=== PATIENT | female | born 1930 | race Caucasian/White ===

== ENCOUNTER → 2017-04-25 | Outpatient (CLI) | payer OTHER, MEDICARE ==
[~2017-04-25] MED LIST: ASPIR 8181 M1 PO; DILTIAZEM 24HR180 M3 PO; LEVAQUIN750 MG PO; NORVASC5 MG PO; OMEPRAZOLE20 M2 PO; PRAVASTATIN SOD40 MG PO; PRESERVISIO1 CAPSULE PO; SPIRIVA RESPIMAT4 G1 IH; SYMBICORT60 INHALA1 IH
== END | disposition home or self-care (01) ==
LOC: NUC 08:12
DX: R07.9 Chest pain, unspecified (principal)
CPT/HCPCS: 78452; 93017; 93306; A9500; J2785

== ENCOUNTER → 2017-04-26 | Outpatient (CLI) | payer OTHER, MEDICARE ==
[~2017-04-26] VITALS: Ht 144.8 cm; Wt 56.2 kg
[2017-04-26 09:32] LABS: PROTHROMBIN TIME 11.4 SEC (10.2-12.9)
[2017-04-26 09:34] LABS: PTT 28.3 SEC (25-37)
== END | disposition home or self-care (01) ==
LOC: OPR 08:42 → EDSTATUS 09:00 → OPR 09:00
PROVIDERS: Internal Medicine Pulmonary Disease
PROC: 0BBF3ZX Excision of Right Lower Lung Lobe, Percutaneous Approach, Diagnostic (ICD-10-PCS; principal; 2017-04-26)
DX: C34.31 Malignant neoplasm of lower lobe, right bronchus or lung (principal); Z87.891 Personal history of nicotine dependence; J44.9 Chronic obstructive pulmonary disease, unspecified; K21.9 Gastro-esophageal reflux disease without esophagitis; E78.5 Hyperlipidemia, unspecified; I48.91 Unspecified atrial fibrillation; I25.9 Chronic ischemic heart disease, unspecified; Z88.5 Allergy status to narcotic agent; Z80.7 Family history of other malignant neoplasms of lymphoid, hematopoietic and related tissues; Z83.3 Family history of diabetes mellitus; Z82.49 Family history of ischemic heart disease and other diseases of the circulatory system
CPT/HCPCS: 71010; 77012; 85610; 85730; J3010

== ENCOUNTER → 2017-05-14 | Outpatient (CLI) | payer OTHER, MEDICARE ==
[2017-05-14 11:12] LABS: BASE EXCESS -0.3 mEq/L (-3 to +3); BICARBONATE 24.1 mEq/L (22-26); CARBOXY HGB 1.8 % (0-5); COMMENTS - BLOOD GASES AC+; DEVICE ROOM AIR; FI02 21 %; PCO2 38 mm Hg (35-45); PO2 72 mm Hg (80-100); SITE LR; TOTAL RESP RATE 14 resp/min; pH 7.41 (7.35-7.45)
== END | disposition home or self-care (01) ==
LOC: RES 10:52
PROVIDERS: Thoracic Surgery (Cardiothoracic Vascular Surgery)
DX: C34.90 Malignant neoplasm of unspecified part of unspecified bronchus or lung (principal); R94.2 Abnormal results of pulmonary function studies
CPT/HCPCS: 36600; 82803; 94060; 94726; 94729

== ENCOUNTER 2017-05-17 08:53 | Day surgery (SDC) | payer OTHER, MEDICARE ==
[~2017-05-17] VITALS: Ht 149.9 cm; Wt 56.7 kg
[2017-05-17 09:33] LABS: PROTHROMBIN TIME 10.8 SEC (10.2-12.9)
[2017-05-17 09:38] LABS: CHLORIDE 107 mEq/L (99-109); SODIUM 143 mEq/L (136-147)
[2017-05-17 09:40] LABS: GLUCOSE 96 mg/dL (70-99)
[2017-05-17 09:41] LABS: ANION GAP 9 MEQ/L (2-14)
[2017-05-17 09:42] LABS: TOTAL BILIRUBIN 0.5 mg/dL (0.0-1.0)
[2017-05-17 09:43] LABS: ALKALINE PHOSPHATASE 70 IU/L (3-129)
[2017-05-17 09:44] LABS: GFR ESTIMATE (CALCULATED) > 59 mL/min/
[2017-05-17 09:45] LABS: UREA NITROGEN (BUN) 17 mg/dL (9-23)
[2017-05-17 09:51] VITALS: BP 148/90
[2017-05-17 14:45] VITALS: BP 122/66
[2017-05-17 15:30] VITALS: BP 116/64
== END 2017-05-17 15:44 | disposition home or self-care (01) ==
LOC: SDC 08:53
PROVIDERS: Thoracic Surgery (Cardiothoracic Vascular Surgery)
PROC: 07B74ZX Excision of Thorax Lymphatic, Percutaneous Endoscopic Approach, Diagnostic (ICD-10-PCS; principal; 2017-05-17)
DX: C34.31 Malignant neoplasm of lower lobe, right bronchus or lung (principal); C77.1 Secondary and unspecified malignant neoplasm of intrathoracic lymph nodes; I10 Essential (primary) hypertension; J44.9 Chronic obstructive pulmonary disease, unspecified; E78.5 Hyperlipidemia, unspecified; K21.9 Gastro-esophageal reflux disease without esophagitis; Z79.82 Long term (current) use of aspirin
CPT/HCPCS: 80053; 85610; 86850; 86870; 86900; 86901; 86905; 86920; 88305; 93005; J0131; J0330; J0690; J2405; J2710; J3010

== ENCOUNTER 2017-10-19 10:18 | Inpatient (IN) | payer OTHER, MEDICARE ==
[~2017-10-19] VITALS: Ht 149.9 cm; Wt 57.1 kg
[2017-10-19 11:25] LABS: HEMATOCRIT 40.5 % (36.0-46.0); HEMOGLOBIN 13.5 G/DL (11.9-15.5); MCH 31.4 PG (29.0-34.0); MCHC 33.3 G/DL (30.0-36.0); MCV 94.2 FL (83-99); PLATELET COUNT 165 K/uL (156-360); RBC DIS.WIDTH-CV 14.2 % (11.8-14.6); RBC DIS.WIDTH-SD 49.4 % (39-53); WHITE BLOOD COUNT 4.8 K/uL (4.1-10.2)
[2017-10-19 11:35] LABS: CHLORIDE 105 mEq/L (99-109); POTASSIUM 4.2 mEq/L (3.7-5.4); SODIUM 140 mEq/L (136-147)
[2017-10-19 11:36] LABS: GLUCOSE 80 mg/dL (70-99)
[2017-10-19 11:40] LABS: CREATININE 0.7 mg/dL (0.6-1.3); GFR ESTIMATE (CALCULATED) > 59 mL/min/
[2017-10-19 11:41] LABS: UREA NITROGEN (BUN) 12 mg/dL (9-23)
[2017-10-19 11:45] LABS: TROP-I INTERPRETATION NEGATIVE; TROPONIN-I < 0.01 ng/mL (0.0-0.30)
[2017-10-19] MEDS ORDERED: ANORO ELLIPTA1 EACH IH (12:36)
[2017-10-19] MEDS ORDERED: VENTOLIN HFA18 GM IH (12:37)
[2017-10-19 13:52] LABS: INTER. NORMALIZED RATIO 1.1
[2017-10-19 13:55] LABS: PTT 26.4 SEC (25-37)
[2017-10-19] MEDS ORDERED: CARTIA XT180 MG PO (16:40)
[2017-10-19 17:15] VITALS: BP 141/78
[2017-10-19 19:22] VITALS: BP 144/66
[2017-10-20] VITALS (7 sets, daily range): BP systolic 102–117; BP diastolic 57–72
[2017-10-20 05:49] LABS: HEMATOCRIT 34.1 % (36.0-46.0); MCHC 33.1 G/DL (30.0-36.0); MCV 93.4 FL (83-99); PLATELET COUNT 165 K/uL (156-360); RBC DIS.WIDTH-CV 14.2 % (11.8-14.6); RBC DIS.WIDTH-SD 48.9 % (39-53); RED BLOOD COUNT 3.65 M/uL (3.80-5.20)
[2017-10-20 05:50] LABS: HEMOGLOBIN 11.3 G/DL (11.9-15.5)
[2017-10-21 06:47] LABS: HEMATOCRIT 35.5 % (36.0-46.0); HEMOGLOBIN 11.8 G/DL (11.9-15.5); MCH 31.4 PG (29.0-34.0); MCHC 33.2 G/DL (30.0-36.0); MCV 94.4 FL (83-99); PLATELET COUNT 165 K/uL (156-360); RBC DIS.WIDTH-CV 14.3 % (11.8-14.6); RBC DIS.WIDTH-SD 49.7 % (39-53); RED BLOOD COUNT 3.76 M/uL (3.80-5.20); WHITE BLOOD COUNT 3.9 K/uL (4.1-10.2)
[2017-10-21 07:05] LABS: CHLORIDE 105 MEQ/L (99-109); CREATININE 0.6 MG/DL (0.6-1.3); GFR ESTIMATE (CALCULATED) > 59 mL/min/; GLUCOSE 95 mg/dL (70-99); POTASSIUM 4.2 MEQ/L (3.7-5.4); SODIUM 141 MEQ/L (136-147); UREA NITROGEN (BUN) 9 mg/dL (9-23)
[2017-10-21 07:49] VITALS: BP 118/74
[2017-10-21] MEDS ORDERED: ZITHROMAX500 MG PO (13:32)
[2017-10-21] MEDS ORDERED: XARELTO15 MG PO (13:32)
[2017-10-21] MEDS ORDERED: XARELTO20 MG PO (13:32)
[2017-10-21] MEDS ORDERED: CEFTIN500 MG PO (13:33)
== END 2017-10-21 16:15 | disposition home or self-care (01) | DRG 175 ==
LOC: EME 10:18 → EDOF 14:08 → 5EAST 14:08 → ENRESERV 14:09 → 5EAST 17:08
PROVIDERS: Family Medicine; Physician Assistant
DX: I26.99 Other pulmonary embolism without acute cor pulmonale (principal); J18.9 Pneumonia, unspecified organism; J90 Pleural effusion, not elsewhere classified; C34.31 Malignant neoplasm of lower lobe, right bronchus or lung; Z60.2 Problems related to living alone; E78.5 Hyperlipidemia, unspecified; K21.9 Gastro-esophageal reflux disease without esophagitis; Z66 Do not resuscitate; J43.8 Other emphysema; J06.9 Acute upper respiratory infection, unspecified; Z91.14 Patient's other noncompliance with medication regimen; Z92.3 Personal history of irradiation; Z87.891 Personal history of nicotine dependence
CPT/HCPCS: 71046; 71275; 80048; 83605; 83880; 84484; 85027; 85379; 85610; 85730; 87040; 93005; 94640; 94640 76; 99281; 99285; J0456; J0696; J7030

== ENCOUNTER 2018-02-22 12:23 | Emergency (ER) | payer OTHER, MEDICARE ==
[~2018-02-22] VITALS: Ht 152.4 cm; Wt 56.0 kg
[~2018-02-22 12:23] MED LIST changes: +ANORO ELLIPTA1 EACH IH; +CARTIA XT180 MG PO; +CEFTIN500 MG PO; +VENTOLIN HFA18 GM IH; +XARELTO15 MG PO; +XARELTO20 MG PO; +ZITHROMAX500 MG PO
[2018-02-22 12:49] LABS: ALBUMIN 4.2 g/dL (3.2-4.8); CHLORIDE 100 mEq/L (99-109); SODIUM 136 mEq/L (136-147)
[2018-02-22 12:50] LABS: BASOPHIL (%) 0.5 % (0-1); EOSINOPHIL (%) 1.5 % (0-5); EOSINOPHIL COUNT 0.1 K/uL (0-0.3); HEMOGLOBIN 15.2 G/DL (11.9-15.5); IMMATURE GRANULOCYTE (%) 0.3 % (0.0-0.7); LYMPHOCYTE (%) 17.2 % (15-42); LYMPHOCYTE COUNT 1.1 K/uL (1.0-2.8); MCH 32.5 PG (29.0-34.0); MCHC 34.5 G/DL (30.0-36.0); MONOCYTE (%) 7.2 % (3-12); MONOCYTE COUNT 0.4 K/uL (0-0.8); NEUTROPHIL (%) 73.3 % (45-76); NEUTROPHIL COUNT 4.5 K/uL (1.8-6.4); PLATELET COUNT 219 K/uL (156-360); RBC DIS.WIDTH-CV 15.6 % (11.8-14.6); RED BLOOD COUNT 4.68 M/uL (3.80-5.20); WHITE BLOOD COUNT 6.1 K/uL (4.1-10.2)
[2018-02-22 12:51] LABS: GLUCOSE 181 mg/dL (70-99); TOTAL PROTEIN 7.9 g/dL (6.4-8.3)
[2018-02-22 12:52] LABS: INTER. NORMALIZED RATIO 1.3
[2018-02-22 12:53] LABS: TOTAL BILIRUBIN 0.7 mg/dL (0.0-1.0)
[2018-02-22 12:54] LABS: PTT 30.6 SEC (25-37)
[2018-02-22 12:55] LABS: ALKALINE PHOSPHATASE 71 IU/L (3-129); CREATININE 0.8 mg/dL (0.6-1.3); GFR ESTIMATE (CALCULATED) > 59 mL/min/
[2018-02-22 12:56] LABS: UREA NITROGEN (BUN) 13 mg/dL (9-23)
[2018-02-22 12:57] LABS: AST (GOT) 29 IU/L (2-34)
[2018-02-22 12:58] LABS: ALT (GPT) 20 IU/L (3-49)
[2018-02-22 14:02] LABS: APPEARANCE CLEAR ((CLEAR)); BILIRUBIN NEGATIVE; BLOOD MODERATE; COLOR YELLOW ((YELLOW)); GLUCOSE (STRIP) NEGATIVE; KETONES NEGATIVE; LEUKOCYTES NEGATIVE; NITRITE NEGATIVE; PROTEIN (STRIP) NEGATIVE; SPECIFIC GRAVITY 1.024 (1.000-1.030); UROBILINOGEN 0.2 MG/DL (0.2-1.0)
[2018-02-22 14:21] LABS: BACTERIA 2+ /HPF; EPITHELIAL CELLS RARE /HPF; MUCUS NONE SEEN /LPF; UCUL ADDED? YES; WHITE BLOOD CELLS 0-5 /HPF (0-5)
[2018-02-22] MEDS ORDERED: LIDODERM 5% P1 PATCH TD (15:18)
[2018-02-22] MEDS ORDERED: TYLENOL REGULA325 MG PO (15:18)
[2018-02-22 16:12] VITALS: BP 147/94
== END 2018-02-22 16:13 | disposition home or self-care (01) ==
LOC: EME 12:23
PROVIDERS: Emergency Medicine
DX: R82.71 Bacteriuria (principal); B96.1 Klebsiella pneumoniae [K. pneumoniae] as the cause of diseases classified elsewhere; M54.5 Low back pain; R31.9 Hematuria, unspecified; I71.4 Abdominal aortic aneurysm, without rupture; J90 Pleural effusion, not elsewhere classified; R91.8 Other nonspecific abnormal finding of lung field; E78.5 Hyperlipidemia, unspecified; Z79.82 Long term (current) use of aspirin; Z92.3 Personal history of irradiation; Z85.118 Personal history of other malignant neoplasm of bronchus and lung; Z88.5 Allergy status to narcotic agent
CPT/HCPCS: 71275; 74174; 80047; 80053; 81003; 83605; 85025; 85610; 85730; 86850; 86870; 86900; 86901; 86905; 86920; 87077; 87086; 87186; 93005; 99281; 99285; J7120

== ENCOUNTER 2018-04-07 14:32 | Inpatient (IN) | payer OTHER, MEDICARE ==
[~2018-04-07] VITALS: Ht 149.9 cm; Wt 63.7 kg
[~2018-04-07 14:32] MED LIST changes: +LIDODERM 5% P1 PATCH TD; +TYLENOL REGULA325 MG PO
[2018-04-07 15:07] LABS: HEMOGLOBIN 10.2 G/DL (11.9-15.5); MCH 32.8 PG (29.0-34.0); MCV 96.5 FL (83-99); RBC DIS.WIDTH-CV 14.4 % (11.8-14.6); RBC DIS.WIDTH-SD 49.9 % (39-53); RED BLOOD COUNT 3.11 M/uL (3.80-5.20); WHITE BLOOD COUNT 13.7 K/uL (4.1-10.2)
[2018-04-07 15:09] LABS: PLATELET COUNT 275 K/uL (156-360)
[2018-04-07 15:15] LABS: INTER. NORMALIZED RATIO 3.1
[2018-04-07 15:16] LABS: PTT 34.6 SEC (25-37)
[2018-04-07 15:18] LABS: CHLORIDE 100 mEq/L (99-109); POTASSIUM 3.4 mEq/L (3.7-5.4); SODIUM 136 mEq/L (136-147)
[2018-04-07 15:21] LABS: GLUCOSE 136 mg/dL (70-99); TOTAL PROTEIN 5.9 g/dL (6.4-8.3)
[2018-04-07 15:22] LABS: TOTAL BILIRUBIN 0.6 mg/dL (0.0-1.0)
[2018-04-07 15:24] LABS: ALKALINE PHOSPHATASE 146 IU/L (3-129); CREATININE 0.7 mg/dL (0.6-1.3); GFR ESTIMATE (CALCULATED) > 59 mL/min/
[2018-04-07 15:25] LABS: UREA NITROGEN (BUN) 15 mg/dL (9-23)
[2018-04-07 15:26] LABS: AST (GOT) 20 IU/L (2-34)
[2018-04-07 15:27] LABS: ALT (GPT) 23 IU/L (3-49)
[2018-04-07 15:28] LABS: LIPASE 8 U/L (1.0-51.0)
[2018-04-07 17:59] LABS: APPEARANCE SL.HAZY ((CLEAR)); BILIRUBIN NEGATIVE; BLOOD MODERATE; COLOR YELLOW ((YELLOW)); GLUCOSE (STRIP) NEGATIVE; KETONES NEGATIVE; LEUKOCYTES MODERATE; NITRITE NEGATIVE; PROTEIN (STRIP) NEGATIVE; SPECIFIC GRAVITY 1.048 (1.000-1.030)
[2018-04-07] MEDS ORDERED: OMEPRAZOLE20 MG PO (18:39)
[2018-04-07] MEDS ORDERED: TRAMADOL HCL50 MG PO (18:41)
[2018-04-07] MEDS ORDERED: [UNRECOGNIZED DRUG - OTHER] PO (18:47)
[2018-04-07] MEDS ORDERED: ANORO ELLIPTA1 EACH IH (18:51)
[2018-04-07] MEDS ORDERED: XARELTO20 MG PO (18:53)
[2018-04-07] MEDS ORDERED: SENNA-DOCUSATE1 EAC1 PO (18:54)
[2018-04-07 18:57] LABS: BACTERIA RARE /HPF; EPITHELIAL CELLS RARE /HPF; MUCUS TRACE /LPF; RED BLOOD CELLS 40-50 /HPF (0-5); UCUL ADDED? YES; WHITE BLOOD CELLS TNTC /HPF (0-5)
[2018-04-07] MEDS ORDERED: DUONEB 2.5-0.5 M3 ML AEROSOL (18:57)
[2018-04-07] MEDS ORDERED: TYLENOL ARTHRI650 MG PO (18:58)
[2018-04-07] MEDS ORDERED: BISAC-EVAC10 MG PR (19:01)
[2018-04-07] MEDS ORDERED: DULCOLAX10 MG PR (19:02)
[2018-04-07] MEDS ORDERED: MELATONIN1 MG PO (19:03)
[2018-04-07] MEDS ORDERED: MILK OF MAGN PO (19:05)
[2018-04-07] MEDS ORDERED: MIRALAX17 GM PO (19:07)
[2018-04-07] MEDS ORDERED: ZOFRAN4 MG PO (19:08)
[2018-04-07] MEDS ORDERED: OXAYDO5 MG PO (19:09)
[2018-04-07] MEDS ORDERED: PRUNE JUICE PO (19:13)
[2018-04-07 21:59] VITALS: BP 117/70
[2018-04-08] VITALS (7 sets, daily range): BP systolic 121–147; BP diastolic 63–87
[2018-04-08 05:31] LABS: HEMATOCRIT 28.8 % (36.0-46.0); HEMOGLOBIN 9.5 G/DL (11.9-15.5); MCH 32.2 PG (29.0-34.0); MCV 97.6 FL (83-99); PLATELET COUNT 321 K/uL (156-360); RBC DIS.WIDTH-CV 14.4 % (11.8-14.6); RBC DIS.WIDTH-SD 51.1 % (39-53); RED BLOOD COUNT 2.95 M/uL (3.80-5.20); WHITE BLOOD COUNT 15.5 K/uL (4.1-10.2)
[2018-04-08 06:02] LABS: ALBUMIN 2.7 G/DL (3.2-4.8); ALKALINE PHOSPHATASE 112 IU/L (3-129); ALT (GPT) 15 IU/L (3-49); AST (GOT) 19 IU/L (2-34); CHLORIDE 104 MEQ/L (99-109); CREATININE 0.5 MG/DL (0.6-1.3); GFR ESTIMATE (CALCULATED) > 59 mL/min/; GLUCOSE 134 mg/dL (70-99); POTASSIUM 3.6 MEQ/L (3.7-5.4); SODIUM 136 MEQ/L (136-147); TOTAL BILIRUBIN 0.5 MG/DL (0.0-1.0); UREA NITROGEN (BUN) 17 mg/dL (9-23)
[2018-04-08 06:08] LABS: INTER. NORMALIZED RATIO 1.9
[2018-04-08 08:20] LABS: TROP-I INTERPRETATION NEGATIVE; TROPONIN-I 0.01 ng/mL (0.0-0.30)
[2018-04-09 04:06] VITALS: BP 137/77
[2018-04-09 06:09] LABS: HEMATOCRIT 27.5 % (36.0-46.0); HEMOGLOBIN 8.8 G/DL (11.9-15.5); MCH 31.8 PG (29.0-34.0); MCV 99.3 FL (83-99); PLATELET COUNT 362 K/uL (156-360); RBC DIS.WIDTH-CV 14.6 % (11.8-14.6); RBC DIS.WIDTH-SD 53.1 % (39-53); RED BLOOD COUNT 2.77 M/uL (3.80-5.20); WHITE BLOOD COUNT 12.7 K/uL (4.1-10.2)
[2018-04-09 06:20] LABS: INTER. NORMALIZED RATIO 2.1
[2018-04-09 06:23] LABS: PTT 28.7 SEC (25-37)
[2018-04-09 06:39] LABS: BASOPHIL (%) 0.2 % (0-1); EOSINOPHIL (%) 0 % (0-5); IMMATURE GRANULOCYTE (%) 0.4 % (0.0-0.7); LYMPHOCYTE (%) 3.5 % (15-42); LYMPHOCYTE COUNT 0.5 K/uL (1.0-2.8); MONOCYTE (%) 7.1 % (3-12); MONOCYTE COUNT 0.9 K/uL (0-0.8); NEUTROPHIL (%) 88.8 % (45-76); NEUTROPHIL COUNT 11.3 K/uL (1.8-6.4)
[2018-04-09 06:42] LABS: ALBUMIN 2.5 G/DL (3.2-4.8); ALKALINE PHOSPHATASE 95 IU/L (3-129); ALT (GPT) 13 IU/L (3-49); AST (GOT) 19 IU/L (2-34); CHLORIDE 105 MEQ/L (99-109); CREATININE 0.5 MG/DL (0.6-1.3); DIRECT BILIRUBIN 0.2 mg/dL (0.0-0.3); GFR ESTIMATE (CALCULATED) > 59 mL/min/; SODIUM 139 MEQ/L (136-147); TOTAL BILIRUBIN 0.5 MG/DL (0.0-1.0); TOTAL PROTEIN 4.8 G/DL (6.4-8.3); UREA NITROGEN (BUN) 20 mg/dL (9-23)
[2018-04-09 06:44] LABS: GLUCOSE 94 mg/dL (70-99)
[2018-04-09 07:14] VITALS: BP 134/89
[2018-04-09 12:06] VITALS: BP 136/73
[2018-04-09 15:53] VITALS: BP 132/75
[2018-04-09 19:17] VITALS: BP 127/81
[2018-04-09 23:38] VITALS: BP 96/60
[2018-04-10 00:34] LABS: HEMATOCRIT 25.2 % (36.0-46.0); HEMOGLOBIN 8.4 G/DL (11.9-15.5); MCH 32.7 PG (29.0-34.0); MCHC 33.3 G/DL (30.0-36.0); MCV 98.1 FL (83-99); PLATELET COUNT 299 K/uL (156-360); RBC DIS.WIDTH-CV 14.6 % (11.8-14.6); RBC DIS.WIDTH-SD 52.5 % (39-53); RED BLOOD COUNT 2.57 M/uL (3.80-5.20); WHITE BLOOD COUNT 9.5 K/uL (4.1-10.2)
[2018-04-10 00:46] LABS: ALBUMIN 2.6 g/dL (3.2-4.8); CHLORIDE 109 mEq/L (99-109); POTASSIUM 4.3 mEq/L (3.7-5.4); SODIUM 139 mEq/L (136-147)
[2018-04-10 00:48] LABS: GLUCOSE 82 mg/dL (70-99)
[2018-04-10 00:49] LABS: TOTAL PROTEIN 5.1 g/dL (6.4-8.3)
[2018-04-10 00:50] LABS: TOTAL BILIRUBIN 0.5 mg/dL (0.0-1.0)
[2018-04-10 00:52] LABS: ALKALINE PHOSPHATASE 99 IU/L (3-129); CREATININE 0.6 mg/dL (0.6-1.3); GFR ESTIMATE (CALCULATED) > 59 mL/min/
[2018-04-10 00:53] LABS: UREA NITROGEN (BUN) 19 mg/dL (9-23)
[2018-04-10 00:54] LABS: AST (GOT) 24 IU/L (2-34)
[2018-04-10 00:55] LABS: ALT (GPT) 16 IU/L (3-49)
[2018-04-10 01:25] LABS: BASOPHIL (%) 0.1 % (0-1); EOSINOPHIL (%) 0.2 % (0-5); IMMATURE GRANULOCYTE (%) 0.6 % (0.0-0.7); LYMPHOCYTE (%) 3.7 % (15-42); LYMPHOCYTE COUNT 0.4 K/uL (1.0-2.8); MONOCYTE COUNT 0.8 K/uL (0-0.8); NEUTROPHIL (%) 87.4 % (45-76); NEUTROPHIL COUNT 8.3 K/uL (1.8-6.4); PLAT.SUFFICIENCY ADEQUATE
[2018-04-10 02:04] VITALS: BP 124/69
[2018-04-10 03:33] VITALS: BP 145/74
[2018-04-10 08:09] VITALS: BP 144/81
[2018-04-10 09:25] LABS: HEMATOCRIT 25.2 % (36.0-46.0); HEMOGLOBIN 8.2 G/DL (11.9-15.5); MCV 99.6 FL (83-99)
[2018-04-10 09:54] LABS: TROP-I INTERPRETATION NEGATIVE; TROPONIN-I < 0.01 ng/mL (0.0-0.30)
[2018-04-10 15:48] VITALS: BP 138/78
[2018-04-10 16:10] LABS: HEMATOCRIT 23.6 % (36.0-46.0); HEMOGLOBIN 7.8 G/DL (11.9-15.5); MCV 98.3 FL (83-99)
[2018-04-10 20:00] VITALS: BP 109/53
[2018-04-10 23:02] LABS: HEMATOCRIT 22.6 % (36.0-46.0); HEMOGLOBIN 7.3 G/DL (11.9-15.5); MCV 97.4 FL (83-99)
[2018-04-11] VITALS: BP 110/58
[2018-04-11 04:00] VITALS: BP 110/62
[2018-04-11 05:49] LABS: HEMOGLOBIN 7.8 G/DL (11.9-15.5); MCH 31.6 PG (29.0-34.0); MCHC 32.5 G/DL (30.0-36.0); MCV 97.2 FL (83-99); PLATELET COUNT 328 K/uL (156-360); RBC DIS.WIDTH-CV 14.5 % (11.8-14.6); RBC DIS.WIDTH-SD 51.1 % (39-53); RED BLOOD COUNT 2.47 M/uL (3.80-5.20); WHITE BLOOD COUNT 7.6 K/uL (4.1-10.2)
[2018-04-11 12:02] VITALS: BP 114/60
[2018-04-11 13:00] LABS: HEMOGLOBIN 8.6 G/DL (11.9-15.5); MCV 96.3 FL (83-99)
[2018-04-11 15:23] VITALS: BP 128/61
[2018-04-11 19:45] VITALS: BP 147/76
[2018-04-11 23:52] VITALS: BP 129/76
[2018-04-12 03:30] VITALS: BP 125/71
[2018-04-12 06:19] LABS: HEMATOCRIT 23.8 % (36.0-46.0); HEMOGLOBIN 7.7 G/DL (11.9-15.5); MCV 95.6 FL (83-99)
[2018-04-12 07:43] VITALS: BP 126/59
[2018-04-12 09:03] LABS: FERRITIN 73 NG/ML (10-291)
[2018-04-12 12:02] VITALS: BP 128/71
[2018-04-12 14:03] LABS: IRON 17 MCG/DL (35-150)
[2018-04-12 14:21] LABS: HEMATOCRIT 26.2 % (36.0-46.0); HEMOGLOBIN 8.7 G/DL (11.9-15.5)
[2018-04-12 16:01] VITALS: BP 108/61
[2018-04-12 20:00] VITALS: BP 115/73
[2018-04-13] VITALS: BP 128/77
[2018-04-13 04:00] VITALS: BP 134/77
[2018-04-13 06:34] LABS: HEMATOCRIT 24.3 % (36.0-46.0); HEMOGLOBIN 7.9 G/DL (11.9-15.5); MCH 30.9 PG (29.0-34.0); MCHC 32.5 G/DL (30.0-36.0); MCV 94.9 FL (83-99); NRBC (%) 0.3 /100 WBC (0-0); PLATELET COUNT 263 K/uL (156-360); RBC DIS.WIDTH-CV 14.3 % (11.8-14.6); RBC DIS.WIDTH-SD 48.4 % (39-53); RED BLOOD COUNT 2.56 M/uL (3.80-5.20); WHITE BLOOD COUNT 6.9 K/uL (4.1-10.2)
[2018-04-13 07:07] LABS: CHLORIDE 99 MEQ/L (99-109); CREATININE 0.4 MG/DL (0.6-1.3); GFR ESTIMATE (CALCULATED) > 59 mL/min/; GLUCOSE 98 mg/dL (70-99); SODIUM 136 MEQ/L (136-147); UREA NITROGEN (BUN) 10 mg/dL (9-23)
[2018-04-13 07:09] LABS: POTASSIUM 3.4 MEQ/L (3.7-5.4)
[2018-04-13 07:13] VITALS: BP 126/75
[2018-04-13 10:57] VITALS: BP 142/80
[2018-04-13 14:56] VITALS: BP 161/876
[2018-04-13 20:00] VITALS: BP 123/61
[2018-04-14] VITALS: BP 110/54
[2018-04-14 04:00] VITALS: BP 111/62
[2018-04-14 06:49] LABS: HEMATOCRIT 23.6 % (36.0-46.0); HEMOGLOBIN 7.8 G/DL (11.9-15.5); MCV 94.8 FL (83-99)
[2018-04-14 07:08] VITALS: BP 131/66
[2018-04-14 11:03] VITALS: BP 125/67
[2018-04-14 15:02] VITALS: BP 133/70
[2018-04-14 19:22] VITALS: BP 137/71
[2018-04-15 00:17] VITALS: BP 135/69
[2018-04-15 03:45] VITALS: BP 133/72
[2018-04-15 06:29] LABS: HEMATOCRIT 24.4 % (36.0-46.0); HEMOGLOBIN 8.2 G/DL (11.9-15.5); MCV 93.8 FL (83-99)
[2018-04-15 06:52] LABS: CHLORIDE 95 MEQ/L (99-109); CREATININE 0.4 MG/DL (0.6-1.3); GFR ESTIMATE (CALCULATED) > 59 mL/min/; GLUCOSE 89 mg/dL (70-99); MAGNESIUM 1.7 mg/dl (1.3-2.7); POTASSIUM 3.3 MEQ/L (3.7-5.4); SODIUM 134 MEQ/L (136-147); UREA NITROGEN (BUN) 6 mg/dL (9-23)
[2018-04-15 07:00] VITALS: BP 134/70
[2018-04-15] MEDS ORDERED: PREDNISONE20 MG PO (10:57)
[2018-04-15] MEDS ORDERED: MISOPROSTOL200 MCG PO (10:57)
[2018-04-15] MEDS ORDERED: TRAMADOL HCL50 MG PO (10:57)
[2018-04-15 11:15] VITALS: BP 126/63
== END 2018-04-15 12:52 | DRG 389 ==
LOC: EME 14:32 → 5SOUTH 19:21 → EDOF 19:21 → ENRESERV 19:22 → 5SOUTH 21:17
PROVIDERS: Emergency Medicine; Internal Medicine; Internal Medicine Gastroenterology; Physician Assistant; Physician Assistant Medical
PROC: 0DJD8ZZ Inspection of Lower Intestinal Tract, Via Natural or Artificial Opening Endoscopic (ICD-10-PCS; principal; 2018-04-12)
DX: K56.7 Ileus, unspecified (principal); K56.41 Fecal impaction; K57.30 Diverticulosis of large intestine without perforation or abscess without bleeding; J98.11 Atelectasis; K91.89 Other postprocedural complications and disorders of digestive system; J90 Pleural effusion, not elsewhere classified; I10 Essential (primary) hypertension; R07.89 Other chest pain; R79.1 Abnormal coagulation profile; Z86.711 Personal history of pulmonary embolism; R09.02 Hypoxemia; I48.2 Chronic atrial fibrillation; J44.1 Chronic obstructive pulmonary disease with (acute) exacerbation; B96.1 Klebsiella pneumoniae [K. pneumoniae] as the cause of diseases classified elsewhere; I73.9 Peripheral vascular disease, unspecified; D63.8 Anemia in other chronic diseases classified elsewhere; N39.0 Urinary tract infection, site not specified; Z79.01 Long term (current) use of anticoagulants; Z85.118 Personal history of other malignant neoplasm of bronchus and lung; Z66 Do not resuscitate; Z92.3 Personal history of irradiation; Z86.79 Personal history of other diseases of the circulatory system; Z87.442 Personal history of urinary calculi; K59.39 Other megacolon; K52.9 Noninfective gastroenteritis and colitis, unspecified
CPT/HCPCS: 71045; 71046; 74018; 74176; 74177; 80048; 80053; 80076; 81003; 82728; 82948; 83540; 83605; 83690; 83735; 84145 90; 84443; 84484; 85014; 85018; 85025; 85025 91; 85027; 85610; 85730; 86850; 86900; 86901; 86905; 86920; 87040; 87077; 87086 GA; 87186; 93005; 94640; 94799; 97530 GP; 99281; 99285; J0456; J0692; J0696; J1756; J2270; J2405; J3370; J7030; J7040; J7050; J7512